=== PATIENT | male | born 1945 | race Caucasian/White ===

== ENCOUNTER 2025-06-02 05:33 | Outpatient (CLI) | payer MEDICARE, SELFPAY | END 2025-06-02 05:34 | disposition home or self-care (01) | LOC: AMB 06-05 10:11 | PROVIDERS: Visit Provider Internal Medicine | DX: S09.90XA Unspecified injury of head, initial encounter (principal); W01.10XA Fall on same level from slipping, tripping and stumbling with subsequent striking against unspecified object, initial encounter; Y93.F9 Activity, other caregiving; Y92.002 Bathroom of unspecified non-institutional (private) residence as the place of occurrence of the external cause | CPT/HCPCS: A0998 ==